=== PATIENT | male | born 1980 | race Caucasian/White ===

== ENCOUNTER → 2018-12-25 | Day surgery (SDC) | payer BC ==
[~2018-12-25] MED LIST: Acetaminophen 325 MG Tab PO PRN; Bupivacaine 0.5% 30 ML SDV ONE; Diatrizoate Meglumine/Diatrizoate Sodium 37% 120 ML Bottle PO ONE; HYDROmorphone 0.5 MG/0.5 ML Syringe ONE; Ibuprofen 800 MG Tab PO PRN; Iohexol 647 MG/ML 100 ML Bottle IVPUSH ONE; Ketorolac 30 MG/ML SDV ONE; Labetalol 100 MG/20 ML MDV ONE; Metoclopramide 10 MG/2 ML SDV IVPUSH ONE; Midazolam 1 MG/ML 2 ML SDV ONE; Neostigmine Methylsulfate 1 MG/ML 5 ML Syringe ONE; Ondansetron 4 MG/2 ML SDV IVPUSH PRN; Ondansetron 4 MG/2 ML SDV ONE; Propofol 200 MG/20 ML SDV ONE; Rocuronium 50 MG/5 ML Vial ONE; Sodium Chloride 0.9% 1,000 ML IV SCH; Sodium Chloride 0.9% 10 ML Syringe FLUSH PRN; Succinylcholine/Normal Saline 100 MG/5 ML Syringe ONE; ceFAZolin 1 GM Vial ONE; fentaNYL 100 MCG/2 ML SDV ONE
--- NOTE | 2018-12-25 17:34 | EDM.PDOC ---
ED HPI GENERAL MEDICAL PROBLEM - General Chief Complaint: Abdominal Pain Stated Complaint: ABDOMINAL PAIN Time Seen by Provider: 12/25/18 17:01 Source of Information: Reports: Patient, RN Notes Reviewed History Limitations: Reports: No Limitations - History of Present Illness INITIAL COMMENTS - FREE TEXT/NARRATIVE: Patient is a 38-year-old male presents to the ED for the evaluation of abdominal pain. The patient notes that this pain started after dinner last night. Roughly 9 PM. He states that he did have diarrhea with this, he has not had any vomiting but feels nauseous. The patient states that eating does not seem to make the pain worsened. He does notice a lot of belching and is still passing gas. He went to the [facility] this morning and was given some Zofran, which helped temporarily but the pain has persisted after this. The last dose of Zofran was at 12 PM. He states that he also did take some Pepto last night and this is helped the diarrhea, he states that he is having more formed stools today. He would rate his pain at a 6 or 7 out of 10, this is in his lower abdomen. He states that walking around doesn't bother this too much. He denies any history of IBS or other bowel issues. He has not had any abdominal surgeries. The patient states that his primary care doctor is Dr. Hughes. He admits to feeling bloated, nausea, diarrhea, and feeling chilled but denies any fever, or blood in his stool. Lower Abdomen Pain Score (Numeric/FACES): 6 - Related Data Allergies Allergy/AdvReac Type Severity Reaction Status Date / Time No Known Allergies Allergy Verified 12/25/18 17:06 Home Meds: Home Meds . [No Known Home Meds] 12/25/18 [History] Past Medical History - Past Health History Medical/Surgical History: Denies Medical/Surgical History Social & Family History - Family History Endocrine/Metabolic: Reports: Diabetes, type II (multiple members of family) - Tobacco Use Smoking Status *Q: Never Smoker - Caffeine Use Caffeine Use: Reports: Coffee - Recreational Drug Use Recreational Drug Use: No ED ROS GENERAL - Review of Systems Review Of Systems: See Below Constitutional: Reports: Chills. Denies: Fever HEENT: Reports: No Symptoms Respiratory: Reports: No Symptoms Cardiovascular: Reports: No Symptoms Endocrine: Reports: No Symptoms GI/Abdominal: Reports: Abdominal Pain (lower abd pain), Diarrhea, Nausea. Denies: Black Stool, Bloody Stool, Vomiting : Reports: No Symptoms Musculoskeletal: Reports: No Symptoms Skin: Reports: No Symptoms Neurological: Reports: No Symptoms Psychiatric: Reports: No Symptoms Hematologic/Lymphatic: Reports: No Symptoms Immunologic: Reports: No Symptoms ED EXAM, GI/ABD - Physical Exam Exam: See Below Exam Limited By: No Limitations General Appearance: Alert, WD/WN, No Apparent Distress Ears: Normal External Exam Nose: Normal Inspection Throat/Mouth: Normal Inspection, Normal Lips, Normal Teeth, Normal Gums, Normal Oropharynx, Normal Voice, No Airway Compromise Respiratory/Chest: No Respiratory Distress, Lungs Clear, Normal Breath Sounds, No Accessory Muscle Use, Chest Non-Tender Cardiovascular: Normal Peripheral Pulses, Regular Rate, Rhythm, No Murmur GI/Abdominal Exam: Normal Bowel Sounds, Soft, No Distention, Tender (lower abd, mainly over RLQ), Other (Pt appears to have bloating, but no distension.). No: Rigid, Rebound Extremities: Normal Inspection, Normal Capillary Refill Neurological: Alert, Oriented, Normal Cognition, No Motor/Sensory Deficits Psychiatric: Normal Affect, Normal Mood Skin Exam: Warm, Dry, Intact, Normal Color, No Rash Course - Vital Signs Last Recorded V/S: Last Vital Signs Temp 98.3 F 12/25/18 17:00 Pulse 109 H 12/25/18 17:00 Resp 16 12/25/18 21:11 BP 157/107 H 12/25/18 17:00 Pulse Ox 99 12/25/18 21:11 - Orders/Labs/Meds Orders: Active Orders 24 hr Category Date Time Status Admission Status [Patient Status] [ADT] Routine ADT 12/25/18 20:25 Active Notify Provider Consults [RC] ASDIRECTED Care 12/25/18 19:58 Active POC Glucose [Blood Glucose Check, Bedside] [RC] ONETIME Care 12/25/18 21:05 Active Peripheral IV Care [RC] . DIRECTED Care 12/25/18 17:21 Active Consult to Physician [CONS] Stat Cons 12/25/18 19:57 Active Abdomen Pelvis w Cont [CT] Stat Exams 12/25/18 17:21 Taken Sodium Chloride 0.9% [Normal Saline] 1,000 ml Med 12/25/18 17:30 Active IV ASDIRECTED Sodium Chloride 0.9% [Saline Flush] Med 12/25/18 17:21 Active 10 ml FLUSH ASDIRECTED PRN Peripheral IV Insertion Adult [OM.PC] Routine Oth 12/25/18 17:21 Ordered Schedule Procedure [COMM] Stat Oth 12/25/18 20:26 Ordered Medication Orders Sodium Chloride (Normal Saline) 1,000 mls @ 999 mls/hr IV ASDIRECTED SPRING Last Admin: 12/25/18 17:37 Dose: 999 mls/hr Sodium Chloride (Saline Flush) 10 ml FLUSH ASDIRECTED PRN PRN Reason: Keep Vein Open Last Admin: 12/25/18 17:41 Dose: 10 ml Labs: Laboratory Tests 12/25/18 12/25/18 12/25/18 Range/Units 17:35 17:35 17:35 WBC 19.53 H (4.23-9.07) K/mm3 RBC 5.55 (4.63-6.08) M/mm3 Hgb 16.4 (13.7-17.5) gm/L Hct 44.3 (40.1-51.0) % MCV 79.8 (79.0-92.2) fl MCH 29.5 (25.7-32.2) pg MCHC 37.0 H (32.2-35.5) g/dl RDW Std Deviation 36.1 (35.1-43.9) fL Plt Count 244 (163-337) K/mm3 MPV 9.3 L (9.4-12.3) fl Neutrophils % (Manual) 87 H (40-60) % Band Neutrophils % 2 (0-10) % Lymphocytes % (Manual) 6 L (20-40) % Atypical Lymphs % 0 % Monocytes % (Manual) 5 (2-10) % Eosinophils % (Manual) 0 L (0.8-7.0) % Basophils % (Manual) 0 L (0.2-1.2) Platelet Estimate Adequate RBC Morph Comment Normal Sodium 135 L (136-145) mEq/L Potassium 3.9 (3.5-5.1) mEq/L Chloride 99 (98-107) mEq/L Carbon Dioxide 26 (21-32) mEq/L Anion Gap 13.9 (5-15) BUN 12 (7-18) mg/dL Creatinine 1.1 (0.7-1.3) mg/dL Est Cr Clr Drug Dosing 89.27 mL/min Estimated GFR (MDRD) > 60 (>60) mL/min BUN/Creatinine Ratio 10.9 L (14-18) Glucose 309 H (74-106) mg/dL POC Glucose (70-105) mg/dL Calcium 9.4 (8.5-10.1) mg/dL Total Bilirubin 1.2 H (0.2-1.0) mg/dL AST 26 (15-37) U/L ALT 68 H (16-63) U/L Alkaline Phosphatase 83 (46-116) U/L Total Protein 7.7 (6.4-8.2) g/dl Albumin 3.9 (3.4-5.0) g/dl Globulin 3.8 gm/dL Albumin/Globulin Ratio 1.0 (1-2) Lipase 52 L (73-393) U/L Urine Color (Yellow) Urine Appearance (Clear) Urine pH (5.0-8.0) Ur Specific [place] (1.005-1.030) Urine Protein (Negative) Urine Glucose (UA) (Negative) Urine Ketones (Negative) Urine Occult Blood (Negative) Urine Nitrite (Negative) Urine Bilirubin (Negative) Urine Urobilinogen (0.2-1.0) Ur Leukocyte Esterase (Negative) Urine RBC (0-5) /hpf Urine WBC (0-5) /hpf Ur Squamous Epith Cells (0-5) /hpf Urine Bacteria (FEW) /hpf Urine Mucus (FEW) /hpf 12/25/18 12/25/18 Range/Units 18:40 21:10 WBC (4.23-9.07) K/mm3 RBC (4.63-6.08) M/mm3 Hgb (13.7-17.5) gm/L Hct (40.1-51.0) % MCV (79.0-92.2) fl MCH (25.7-32.2) pg MCHC (32.2-35.5) g/dl RDW Std Deviation (35.1-43.9) fL Plt Count (163-337) K/mm3 MPV (9.4-12.3) fl Neutrophils % (Manual) (40-60) % Band Neutrophils % (0-10) % Lymphocytes % (Manual) (20-40) % Atypical Lymphs % % Monocytes % (Manual) (2-10) % Eosinophils % (Manual) (0.8-7.0) % Basophils % (Manual) (0.2-1.2) Platelet Estimate RBC Morph Comment Sodium (136-145) mEq/L Potassium (3.5-5.1) mEq/L Chloride (98-107) mEq/L Carbon Dioxide (21-32) mEq/L Anion Gap (5-15) BUN (7-18) mg/dL Creatinine (0.7-1.3) mg/dL Est Cr Clr Drug Dosing mL/min Estimated GFR (MDRD) (>60) mL/min BUN/Creatinine Ratio (14-18) Glucose (74-106) mg/dL POC Glucose 247 H (70-105) mg/dL Calcium (8.5-10.1) mg/dL Total Bilirubin (0.2-1.0) mg/dL AST (15-37) U/L ALT (16-63) U/L Alkaline Phosphatase (46-116) U/L Total Protein (6.4-8.2) g/dl Albumin (3.4-5.0) g/dl Globulin gm/dL Albumin/Globulin Ratio (1-2) Lipase (73-393) U/L Urine Color Yellow (Yellow) Urine Appearance Clear (Clear) Urine pH 6.5 (5.0-8.0) Ur Specific [place] 1.020 (1.005-1.030) Urine Protein 1+ H (Negative) Urine Glucose (UA) 2+ H (Negative) Urine Ketones Trace H (Negative) Urine Occult Blood Trace-intact H (Negative) Urine Nitrite Negative (Negative) Urine Bilirubin Negative (Negative) Urine Urobilinogen 0.2 (0.2-1.0) Ur Leukocyte Esterase Negative (Negative) Urine RBC 0-5 (0-5) /hpf Urine WBC 0-5 (0-5) /hpf Ur Squamous Epith Cells 0-5 (0-5) /hpf Urine Bacteria Not seen (FEW) /hpf Urine Mucus Not seen (FEW) /hpf Meds: Medications Generic Name Dose Route Start Last Admin Trade Name Freq PRN Reason Stop Dose Admin Sodium Chloride 1,000 mls @ 999 mls/hr 12/25/18 17:30 12/25/18 17:37 Normal Saline IV 999 mls/hr ASDIRECTED SPRING Administration Sodium Chloride 10 ml 12/25/18 17:21 12/25/18 17:41 Saline Flush FLUSH 10 ml ASDIRECTED PRN Administration Keep Vein Open Discontinued Medications Generic Name Dose Route Start Last Admin Trade Name Lalito PRN Reason Stop Dose Admin Bupivacaine HCl Confirm 12/25/18 20:46 Marcaine 0.5% Administered 12/25/18 20:47 Dose 30 ml .ROUTE .STK-MED ONE Diatrizoate Meglum/Diatrizoate Sod 90 ml 12/25/18 18:52 12/25/18 19:14 Gastrografin 37% PO 12/25/18 18:53 90 ml ONETIME ONE Administration Fentanyl Confirm 12/25/18 20:58 Sublimaze Administered 12/25/18 20:59 Dose 100 mcg .ROUTE .STK-MED ONE Iohexol 100 ml 12/25/18 18:52 12/25/18 19:13 Omnipaque-300 IVPUSH 12/25/18 18:53 100 ml ONETIME ONE Administration Ketorolac Tromethamine Confirm 12/25/18 21:02 Toradol Administered 12/25/18 21:03 Dose 30 mg .ROUTE .STK-MED ONE Metoclopramide HCl 10 mg 12/25/18 17:21 12/25/18 17:39 Reglan IVPUSH 12/25/18 17:22 10 mg ONETIME ONE Administration Midazolam HCl Confirm 12/25/18 21:00 Versed 1 Mg/Ml Administered 12/25/18 21:01 Dose 2 mg .ROUTE .STK-MED ONE Ondansetron HCl Confirm 12/25/18 21:02 Zofran Administered 12/25/18 21:03 Dose 4 mg .ROUTE .STK-MED ONE Propofol Confirm 12/25/18 20:55 Diprivan 20 Ml Administered 12/25/18 20:56 Dose 200 mg .ROUTE .STK-MED ONE Rocuronium [place] Confirm 12/25/18 21:01 Zemuron Administered 12/25/18 21:02 Dose 50 mg .ROUTE .STK-MED ONE Succinylcholine Chloride Confirm 12/25/18 21:00 Succinylcholine In Ns Pf Administered 12/25/18 21:01 Dose 100 mg .ROUTE .STK-MED ONE - Re-Assessments/Exams Free Text/Narrative Re-Assessment/Exam: 12/25/18 17:34 Patient resents to the ED for the evaluation of abdominal pain I have ordered an IVP place with IV fluids, CBC, CMP, 10 mg IV Reglan, and an abdominal pelvis CT with contrast for further evaluation. 12/25/18 18:42 Patient's labs demonstrate an increased white count at 19,000, with 87% neutrophils with 2% bands, this may just be an stress reaction. His blood glucose is 309 at this time, however he states he has not really eaten much over the past day. 12/25/18 19:58 CT is done, and is read by [facility] as early appendicitis. I have consulted the surgeon regulatory services consultant Dr. Sergio Read for an evaluation of the patient. The surgeon will be in to assess the patient and recommend treatment. 12/25/18 20:22 Dr. Read has been in to evaluate the patient and believes he would benefit from an appendectomy today. He measured the appendix at 15 mm and also noted some periappendiceal stranding. 12/25/18 21:06 As patient was getting ready for surgery, the OCCUPATIONAL THERAPY ASSIST requested a [id number] glucose bedside check to be done again as his blood sugar was over 300. The patient does not have a history of diabetes, he is obese and states that diabetes does run in his family. He was going to make an appointment with his PCP for initial management of this. Departure - Departure Time of Disposition: 20:22 Disposition: DC/Tfer to [facility] Condition: Fair Clinical Impression: Appendicitis Qualifiers: Appendicitis type: acute appendicitis Acute appendicitis type: with localized peritonitis Appendicitis gangrene presence: without gangrene Appendicitis perforation presence: without perforation Appendicitis abscess presence: without abscess Qualified Code(s): K35.30 - Acute appendicitis with localized peritonitis, without perforation or gangrene - Discharge Information *PRESCRIPTION DRUG MONITORING PROGRAM REVIEWED*: No *COPY OF PRESCRIPTION DRUG MONITORING REPORT IN PATIENT SOHAN: No - My Orders Last 24 Hours: My Active Orders 12/25/18 17:21 Peripheral IV Care [RC] . DIRECTED Abdomen Pelvis w Cont [CT] Stat Sodium Chloride 0.9% [Saline Flush] 10 ml FLUSH ASDIRECTED PRN Peripheral IV Insertion Adult [OM.PC] Routine 12/25/18 17:30 Sodium Chloride 0.9% [Normal Saline] 1,000 ml IV ASDIRECTED 12/25/18 19:57 Consult to Physician [CONS] Stat 12/25/18 19:58 Notify Provider Consults [RC] ASDIRECTED 12/25/18 20:25 Admission Status [Patient Status] [ADT] Routine 12/25/18 21:05 POC Glucose [Blood Glucose Check, Bedside] [RC] ONETIME - Assessment/Plan Last 24 Hours: My Active Orders 12/25/18 17:21 Peripheral IV Care [RC] . DIRECTED Abdomen Pelvis w Cont [CT] Stat Sodium Chloride 0.9% [Saline Flush] 10 ml FLUSH ASDIRECTED PRN Peripheral IV Insertion Adult [OM.PC] Routine 12/25/18 17:30 Sodium Chloride 0.9% [Normal Saline] 1,000 ml IV ASDIRECTED 12/25/18 19:57 Consult to Physician [CONS] Stat 12/25/18 19:58 Notify Provider Consults [RC] ASDIRECTED 12/25/18 20:25 Admission Status [Patient Status] [ADT] Routine 12/25/18 21:05 POC Glucose [Blood Glucose Check, Bedside] [RC] ONETIME
--- NOTE | 2018-12-25 21:12 | PCM.PREANE ---
Preanesthetic Assessment - Anesthesia/Transfusion/Family Hx Anesthesia History: Prior Anesthesia Without Reaction Family History of Anesthesia Reaction: No Transfusion History: No Prior Transfusion(s) - Review of Systems General: No Symptoms, Fever Pulmonary: No Symptoms Cardiovascular: No Symptoms Neurological: No Symptoms Other: Reports: Diabetes - Physical Assessment NPO Status Date: 12/25/18 NPO Status Time: 01:00 O2 Sat by Pulse Oximetry: 99 Respiratory Rate: 16 Vital Signs: Last Vital Signs Temp 36.8 C 12/25/18 17:00 Pulse 109 H 12/25/18 17:00 Resp 16 12/25/18 17:00 BP 157/107 H 12/25/18 17:00 Pulse Ox 99 12/25/18 17:00 Height: 1.75 m Weight: 131.088 kg ASA Class: 3E Airway Class: Mallampati = 2 Dentition: Reports: Normal Dentition ROM/Head Extension: Full Lungs: Clear to Auscultation, Normal Respiratory Effort Cardiovascular: Regular Rate - Lab Values: Laboratory Last Values WBC 19.53 K/mm3 (4.23-9.07) H 12/25/18 17:35 RBC 5.55 M/mm3 (4.63-6.08) 12/25/18 17:35 Hgb 16.4 gm/L (13.7-17.5) 12/25/18 17:35 Hct 44.3 % (40.1-51.0) 12/25/18 17:35 MCV 79.8 fl (79.0-92.2) 12/25/18 17:35 MCH 29.5 pg (25.7-32.2) 12/25/18 17:35 MCHC 37.0 g/dl (32.2-35.5) H 12/25/18 17:35 RDW Std Deviation 36.1 fL (35.1-43.9) 12/25/18 17:35 Plt Count 244 K/mm3 (163-337) 12/25/18 17:35 MPV 9.3 fl (9.4-12.3) L 12/25/18 17:35 Neutrophils % (Manual) 87 % (40-60) H 12/25/18 17:35 Band Neutrophils % 2 % (0-10) 12/25/18 17:35 Lymphocytes % (Manual) 6 % (20-40) L 12/25/18 17:35 Atypical Lymphs % 0 % 12/25/18 17:35 Monocytes % (Manual) 5 % (2-10) 12/25/18 17:35 Eosinophils % (Manual) 0 % (0.8-7.0) L 12/25/18 17:35 Basophils % (Manual) 0 (0.2-1.2) L 12/25/18 17:35 Platelet Estimate Adequate 12/25/18 17:35 RBC Morph Comment Normal 12/25/18 17:35 Sodium 135 mEq/L (136-145) L 12/25/18 17:35 Potassium 3.9 mEq/L (3.5-5.1) 12/25/18 17:35 Chloride 99 mEq/L (98-107) 12/25/18 17:35 Carbon Dioxide 26 mEq/L (21-32) 12/25/18 17:35 Anion Gap 13.9 (5-15) 12/25/18 17:35 BUN 12 mg/dL (7-18) 12/25/18 17:35 Creatinine 1.1 mg/dL (0.7-1.3) 12/25/18 17:35 Est Cr Clr Drug Dosing 89.27 mL/min 12/25/18 17:35 Estimated GFR (MDRD) > 60 mL/min (>60) 12/25/18 17:35 BUN/Creatinine Ratio 10.9 (14-18) L 12/25/18 17:35 Glucose 309 mg/dL (74-106) H 12/25/18 17:35 Calcium 9.4 mg/dL (8.5-10.1) 12/25/18 17:35 Total Bilirubin 1.2 mg/dL (0.2-1.0) H 12/25/18 17:35 AST 26 U/L (15-37) 12/25/18 17:35 ALT 68 U/L (16-63) H 12/25/18 17:35 Alkaline Phosphatase 83 U/L (46-116) 12/25/18 17:35 Total Protein 7.7 g/dl (6.4-8.2) 12/25/18 17:35 Albumin 3.9 g/dl (3.4-5.0) 12/25/18 17:35 Globulin 3.8 gm/dL 12/25/18 17:35 Albumin/Globulin Ratio 1.0 (1-2) 12/25/18 17:35 Lipase 52 U/L (73-393) L 12/25/18 17:35 Urine Color Yellow (Yellow) 12/25/18 18:40 Urine Appearance Clear (Clear) 12/25/18 18:40 Urine pH 6.5 (5.0-8.0) 12/25/18 18:40 Ur Specific [place] 1.020 (1.005-1.030) 12/25/18 18:40 Urine Protein 1+ (Negative) H 12/25/18 18:40 Urine Glucose (UA) 2+ (Negative) H 12/25/18 18:40 Urine Ketones Trace (Negative) H 12/25/18 18:40 Urine Occult Blood Trace-intact (Negative) H 12/25/18 18:40 Urine Nitrite Negative (Negative) 12/25/18 18:40 Urine Bilirubin Negative (Negative) 12/25/18 18:40 Urine Urobilinogen 0.2 (0.2-1.0) 12/25/18 18:40 Ur Leukocyte Esterase Negative (Negative) 12/25/18 18:40 Urine RBC 0-5 /hpf (0-5) 12/25/18 18:40 Urine WBC 0-5 /hpf (0-5) 12/25/18 18:40 Ur Squamous Epith Cells 0-5 /hpf (0-5) 12/25/18 18:40 Urine Bacteria Not seen /hpf (FEW) 12/25/18 18:40 Urine Mucus Not seen /hpf (FEW) 12/25/18 18:40 - Allergies Allergies/Adverse Reactions: Allergies Allergy/AdvReac Type Severity Reaction Status Date / Time No Known Allergies Allergy Verified 12/25/18 17:06 - Anesthesia Plan Pre-Op Medication Ordered: None - Acknowledgements Anesthesia Type Planned: General Anesthesia Pt an Appropriate Candidate for the Planned Anesthesia: Yes Alternatives and Risks of Anesthesia Discussed w Pt/Guardian: Yes Additional Comments: glucose 247 Temp 101.2 consider full stomach - RSI PreAnesthesia Questionnaire - Past Health History Medical/Surgical History: Denies Medical/Surgical History - SUBSTANCE USE Smoking Status *Q: Never Smoker Recreational Drug Use History: No - HOME MEDS Home Medications: Home Meds . [No Known Home Meds] 12/25/18 [History] - CURRENT (IN HOUSE) MEDS Current Meds: Current Medications Sodium Chloride (Normal Saline) 1,000 mls @ 999 mls/hr IV ASDIRECTED SPRING Last Admin: 12/25/18 17:37 Dose: 999 mls/hr Sodium Chloride (Saline Flush) 10 ml FLUSH ASDIRECTED PRN PRN Reason: Keep Vein Open Last Admin: 12/25/18 17:41 Dose: 10 ml Discontinued Medications Bupivacaine HCl (Marcaine 0.5%) Confirm Administered Dose 30 ml .ROUTE .STK-MED ONE Stop: 12/25/18 20:47 Diatrizoate Meglum/Diatrizoate Sod (Gastrografin 37%) 90 ml PO ONETIME ONE Stop: 12/25/18 18:53 Last Admin: 12/25/18 19:14 Dose: 90 ml Fentanyl (Sublimaze) Confirm Administered Dose 100 mcg .ROUTE .STK-MED ONE Stop: 12/25/18 20:59 Iohexol (Omnipaque-300) 100 ml IVPUSH ONETIME ONE Stop: 12/25/18 18:53 Last Admin: 12/25/18 19:13 Dose: 100 ml Ketorolac Tromethamine (Toradol) Confirm Administered Dose 30 mg .ROUTE .STK- MED ONE Stop: 12/25/18 21:03 Metoclopramide HCl (Reglan) 10 mg IVPUSH ONETIME ONE Stop: 12/25/18 17:22 Last Admin: 12/25/18 17:39 Dose: 10 mg Midazolam HCl (Versed 1 Mg/Ml) Confirm Administered Dose 2 mg .ROUTE .STK-MED ONE Stop: 12/25/18 21:01 Ondansetron HCl (Zofran) Confirm Administered Dose 4 mg .ROUTE .STK-MED ONE Stop: 12/25/18 21:03 Propofol (Diprivan 20 Ml) Confirm Administered Dose 200 mg .ROUTE .STK-MED ONE Stop: 12/25/18 20:56 Rocuronium [place] (Zemuron) Confirm Administered Dose 50 mg .ROUTE .STK-MED ONE Stop: 12/25/18 21:02 Succinylcholine Chloride (Succinylcholine In Ns Pf) Confirm Administered Dose 100 mg .ROUTE .STK-MED ONE Stop: 12/25/18 21:01
--- NOTE | 2018-12-25 22:06 | HP ---
DATE OF ADMISSION: 12/25/2018 ADMITTING DIAGNOSIS: Acute appendicitis. HISTORY OF PRESENT ILLNESS: The patient is a 38-year-old male with about a 24-hour history of abdominal pain. He said it was located in the right lower quadrant. He had an episode of diarrhea last night around 9 p.m. which was the beginning of his syndrome. Soon thereafter, he developed a right lower quadrant abdominal pain. He went to sleep. His pain persisted. He had anorexia and some nausea this morning. He presented to the ED over in [place]. He was given Zofran and discharged and told to return if his pain persists. He had another episode of loose stools today, but his stools have become more formed. His pain was rated at 6/10 to 7/10 in the lower quadrants. He also reported a bloating. He had some subjective signs of fever, but he never had an actual fever on his thermometer at home. He denied any blood in his stool. He never vomited. He has had no prior episodes. PAST MEDICAL HISTORY: None. PAST SURGICAL HISTORY: He had a right open reduction internal fixation of a foot fracture in high school. All pins and screws have been removed. ALLERGIES: To medications, none. CURRENT MEDICATIONS: At home, none. SOCIAL HISTORY: He denies ever smoking. He denies alcohol abuse. Denies illicit drugs. FAMILY HISTORY: Negative for Crohn disease or ulcerative colitis. He is unaware of any significant family diseases. REVIEW OF SYSTEMS: Aside from that listed above, his 10-system review is completely negative. PHYSICAL EXAMINATION: GENERAL: He is alert. He appears in no obvious distress. He is nontoxic appearing. VITAL SIGNS: Temperature 98.3, pulse slightly elevated at 109, respirations 16, blood pressure 157/107, saturating 99% on room air. HEAD AND NECK: Normocephalic, atraumatic. He is anicteric. LUNGS: Clear to auscultation bilaterally. No wheeze, rhonchi, or rales. HEART: Regular rate and rhythm. No clicks, murmurs, or rubs. ABDOMEN: Soft. He has some tenderness in the right lower quadrant with guarding. Negative rebound and negative Rovsing sign. No hernias are palpable. He does have central obesity. Cannot appreciate any surgical scars. EXTREMITIES: No clubbing, cyanosis, or edema. No calf tenderness. INTEGUMENT: No rashes. No lesions. No petechiae. No jaundice. NEUROLOGIC: Cranial nerves are grossly intact. Sensation and movement are preserved in all 4 extremities. PSYCHIATRIC: He has appropriate affect and demeanor with linear thought process. LABORATORY DATA: I have looked at his labs, he has impressive leukocytosis of 19,000. He has 2 bands and a left shift. Chemistries are unremarkable except for glucose of 309, total bilirubin 1.2. I have looked at his CT scan. He has distended appendix measuring 1.5 cm with either appendicolith or contrast at the opening of the appendix. There is periappendiceal fat stranding, 1.5 cm diameter appendix with periappendiceal fat stranding is acute appendicitis by radiologic criteria. ASSESSMENT: 1. Acute appendicitis. 2. Hyperglycemia. PLAN: I had a lengthy discussion with him regarding the options including conservative management and a laparoscopic versus open appendectomy. He was fully informed of the major risks, benefits, and alternatives. He was not interested in conservative management. The risks include, but are not limited to perforation of the bowel, bleeding, risks of anesthesia, possibly further surgery, abscess formation, CT-guided drainage of abscess formation, staple line failure, injury to the bladder, and any other structure within the peritoneal cavity. He expressed understanding and gave informed consent. He will get 2 g of cefoxitin preoperatively. PERRY /[id number]
--- NOTE | 2018-12-25 22:30 | PCM48HPAN ---
Post Anesthesia Note - EVALUATION WITHIN 48HRS OF ANESTHETIC Patient Participated in Evaluation: Yes Respiratory Function Stable: Yes Airway Patent: Yes Cardiovascular Function Stable: Yes Hydration Status Stable: Yes Pain Control Satisfactory: Yes Nausea and Vomiting Control Satisfactory: Yes Mental Status Recovered: Yes Resp Rate: 16
--- NOTE | 2018-12-25 22:30 | PCM.POSTAN ---
POST ANESTHESIA ASSESSMENT - RESPIRATORY Respiratory Status: Airway Patent, O2 Saturation Stable, Supplemental Oxygen - CARDIOVASCULAR CV Status: Pulse Rate WNL, Blood Pressure Stable - GASTROINTESTINAL GI Status: No Symptoms - POST OP HYDRATION Hydration Status: Adequate & Stable
--- NOTE | 2018-12-25 23:12 | OR ---
DATE OF OPERATION: 12/25/2018 SURGEON: Sergio Read MD PREOPERATIVE DIAGNOSIS: Acute appendicitis. POSTOPERATIVE DIAGNOSIS: Acute suppurative appendicitis with localized peritonitis. OPERATION PERFORMED: Laparoscopic appendectomy. ANESTHESIA: General with endotracheal intubation. ESTIMATED BLOOD LOSS: 25 mL. COMPLICATIONS: None. PATHOLOGY: Appendix. DISPOSITION: Stable at the end of the procedure. FINDINGS: He had an acute suppurative appendicitis. Its appendix looked like it might be on the way to gangrene. There was some purulence emanating from the appendix when I stapled across it, and the surrounding fat appeared inflamed and thickened. INDICATION: The patient is a 38-year-old male who presented to the ED with a classic symptoms of acute appendicitis. The CT scan confirmed the diagnosis. He had a leukocytosis. He received 2 g of cefoxitin preoperatively. He gave informed consent. Please see my H and P for further details of that discussion. DESCRIPTION OF PROCEDURE: He was brought to the operating room and placed in a supine position on the operating table. He was given general anesthesia and intubated. The abdomen was prepped and draped in usual sterile fashion. A Veress needle was inserted in the left upper quadrant and insufflation was obtained to a pressure of 15 mmHg with CO2 gas. There was no restriction as he insufflated. I introduced a 12 mm optical port in the left lower quadrant. I visualized the tissue planes as the port passed into the peritoneum. There was no contact to underlying bowel. The Veress was identified in the left upper quadrant. This was removed. There was no contact to underlying bowel and no injuries in the left upper quadrant. I then passed two additional 5 mm ports, one in the umbilicus and one in the suprapubic region above the bladder, both under direct laparoscopic visualization. The patient was placed in a Trendelenburg position with the right side up, identified hyperemic appendix with clear separation. I made a window in the mesoappendix and transected the appendix at its exit from the cecum. The staple line was intact and complete. I then obtained white load and transected the mesoappendix. The appendix was placed in an EndoCatch bag and kept in place temporarily in the peritoneal cavity while I inspected for other pathology. There was some ooze from the staple line. Suction irrigation was utilized to clearly visualize the staple line, and two clips were placed across the mesoappendix for complete hemostasis. I thoroughly irrigated the right lower quadrant. I also inspected the pelvis for any purulence, and there was none. I irrigated and aspirated the pelvic fluid. I once again inspected for any bleeding at the base of the cecum, and there was none. The mesoappendix was completely hemostatic. I then turned my attention to removal of the appendix. The appendix was retrieved through the 12 mm port site. I changed my gloves and then passed a 0 Vicryl stitch across the 12 mm port site with a Ministerio-Kramer closure device. This was done laparoscopically with a [id number] stitch. I once again inspected for any bleeding at the base of the cecum, and there was none. All ports were opened to desufflate the gas, and the instruments were removed, and then I tied that 0 Vicryl stitch to obliterate that defect. Each of the ports was then removed after the gas was desufflated completely. Instrument and sponge counts were correct. I closed the skin with 4-0 Monocryl suture material. Dermabond was applied for sterile barrier. He had no complications and tolerated the procedure well. PERRY /[id number]
--- NOTE | 2018-12-27 09:45 | CT ---
CT abdomen and pelvis Technique: Multiple axial sections were obtained from above the dome of the diaphragm inferiorly through the pubic symphysis. Intravenous and oral contrast was utilized. Comparison: No prior abdominal imaging. Findings: Dilated appendix is identified within the right lower abdomen. Mild surrounding inflammatory change is seen. Findings are compatible with appendicitis. Small portion of the visualized lung bases show nothing acute. Fatty infiltration is seen throughout the liver. Spleen appears within normal limits. Adrenal glands show no nodule. Pancreas is within normal limits. Aorta shows no aneurysm. Kidneys show symmetric contrast enhancement without hydronephrosis or mass. Aorta shows no aneurysm. No retroperitoneal adenopathy or mesenteric abnormalities are seen. No pelvic mass or adenopathy is identified. Delayed images show contrast within the ureters and within the bladder. Bone window settings were reviewed which show compression deformities within the lower thoracic spine which appears old. Mild degenerative change is scattered within the spine. Impression: 1. Findings as noted above compatible with appendicitis. 2. Fatty infiltration within the liver and other incidental findings. Diagnostic code #5 I agree with preliminary report from ad, finalized on 12/25/18, 8:48 PM Central Time
== END | disposition home or self-care (01) ==
LOC: JD.ED 16:52 → JD.SDS 20:28
PROVIDERS: ATTEND Surgery
DX: K35.33 Acute appendicitis with perforation, localized peritonitis, and gangrene, with abscess (principal); E11.65 Type 2 diabetes mellitus with hyperglycemia
CPT/HCPCS: 36415; 44970; 74177; 80053; 81001; 82962; 83690; 85007; 85027; 96361; 96374; 99285; J0330; J0690; J1170; J1885; J2250; J2405; J2704; J2710; J2765; J3010; J3490; J7040; Q9963; Q9967; 00840